=== PATIENT | male | born 1935 | race Caucasian/White ===

== ENCOUNTER 2020-08-09 22:00 | Inpatient (IN) | payer MEDICARE, OTHER ==
[~2020-08-09] VITALS: Ht 180.3 cm; Wt 69.4 kg
[~2020-08-09 22:00] MED LIST: ASPIRIN CHEWABL81 MG PO; CALCIUM 600 +1 EAC3 PO; GLUCOPHAGE 850850 MG PO; GLUCOTROL 10 MG10 MG PO; LISINOPRIL2.5 MG PO; LOPRESSOR50 MG PO; METFORMIN HCL1000 MG PO; PLAVIX 75 MG TA75 MG PO; PROTONIX40 MG PO; ROCEPHIN 1 GM AD1 GM IV
[2020-08-09 23:20] LABS: HEMOGLOBIN 11.8 gm/dl (14.0-17.5); RED BLOOD COUNT 3.6 M/UL (4.20-5.50); WHITE BLOOD COUNT 5.6 K/UL (4.5-11.0)
[2020-08-09 23:43] LABS: BUN/CREATININE RATIO 16 (0-10)
[2020-08-10] MEDS ORDERED: FLOMAX 0.4 MG0.4 MG PO (09:26)
[2020-08-10] MEDS ORDERED: ATORVASTATIN CA80 MG PO (09:26)
[2020-08-10] MEDS ORDERED: LO-DOSE ASPIRIN81 MG PO (09:27)
[2020-08-10] MEDS ORDERED: CALCIUM 600 MG1 EAC1 PO (09:27)
[2020-08-10] MEDS ORDERED: MULTI-VITAMIN1 EACH PO (09:32)
[2020-08-11 03:15] LABS: HEMOGLOBIN 12.8 gm/dl (14.0-17.5); WHITE BLOOD COUNT 4.9 K/UL (4.5-11.0)
[2020-08-11 03:31] LABS: RED BLOOD COUNT 3.98 M/UL (4.20-5.50)
--- NOTE | 2020-08-11 12:09 | NUR ---
INSTRUCTED PATIENT AND ON IMPORTANCE OF TAKING ALL MEDS AND FOLLOW UP APPOINTMENT. HOLD METFORMIN UNTIL 08/12/20
== END 2020-08-11 12:35 | disposition home or self-care (01) | DRG 65 ==
LOC: ER1 22:00 → CDU 08-10 02:07 → MED SURG 4 08-10 19:43
PROVIDERS: Physician Assistant; ADMIT Internal Medicine
PROC: B24BZZZ Ultrasonography of Heart with Aorta (ICD-10-PCS; principal; 2020-08-10)
DX: I63.89 Other cerebral infarction (principal); G81.94 Hemiplegia, unspecified affecting left nondominant side; E11.9 Type 2 diabetes mellitus without complications; K21.9 Gastro-esophageal reflux disease without esophagitis; E78.5 Hyperlipidemia, unspecified; I49.5 Sick sinus syndrome; N40.0 Benign prostatic hyperplasia without lower urinary tract symptoms; R47.81 Slurred speech; I25.10 Atherosclerotic heart disease of native coronary artery without angina pectoris; Z95.1 Presence of aortocoronary bypass graft; Z98.49 Cataract extraction status, unspecified eye; Z87.891 Personal history of nicotine dependence; Z83.3 Family history of diabetes mellitus; Z80.9 Family history of malignant neoplasm, unspecified; Z82.49 Family history of ischemic heart disease and other diseases of the circulatory system; Z95.810 Presence of automatic (implantable) cardiac defibrillator; Z79.84 Long term (current) use of oral hypoglycemic drugs; Z79.82 Long term (current) use of aspirin; Z79.899 Other long term (current) drug therapy; Z95.5 Presence of coronary angioplasty implant and graft; R27.0 Ataxia, unspecified
CPT/HCPCS: ECHO; 36415; 70496; 70498; 71111; 80048; 80053; 81001; 82550; 82553; 82962; 83874; 84484; 85025; 93005; 93306; 93880; 99285; Q9967; U0002

== ENCOUNTER 2022-03-01 11:03 | Emergency (ER) | payer MEDICARE, OTHER ==
[~2022-03-01 11:03] MED LIST changes: +ATORVASTATIN CA80 MG PO; +CALCIUM 600 MG1 EAC1 PO; +FLOMAX 0.4 MG0.4 MG PO; +LO-DOSE ASPIRIN81 MG PO; +MULTI-VITAMIN1 EACH PO
[2022-03-01 12:34] LABS: HEMOGLOBIN 12.2 gm/dl (14.0-17.5); RED BLOOD COUNT 3.67 M/UL (4.20-5.50)
== END 2022-03-01 16:45 | disposition home or self-care (01) ==
LOC: ER1 11:03
PROVIDERS: Emergency Medicine
DX: R07.89 Other chest pain (principal); N18.9 Chronic kidney disease, unspecified; D61.818 Other pancytopenia; I11.9 Hypertensive heart disease without heart failure; K21.9 Gastro-esophageal reflux disease without esophagitis; E78.5 Hyperlipidemia, unspecified; Z86.73 Personal history of transient ischemic attack (TIA), and cerebral infarction without residual deficits; Z95.1 Presence of aortocoronary bypass graft
CPT/HCPCS: 71045; 80053; 82550; 82553; 84484; 85025; 93005; 99284